=== PATIENT | male | born 1955 | race Caucasian/White ===

== ENCOUNTER 2024-03-08 10:33 | Outpatient (OUT) | payer MEDICARE, OTHER, SELFPAY ==
--- NOTE | 2024-03-08 10:48 | ECG_ITS ---
The [facility] Test Date: 2024-03-08 Pat Name: CHARLES JRUADO Department: Room: - Gender: Male [employer]: : 1955 Requested By: MARTINA KIRKLAND Order Number: [id number] Reading MD: WILLIE ESTRADA Measurements Intervals [place] Rate: 56 P: 57 TX: 191 QRS: -50 QRSD: 93 T: 30 QT: 405 QTc: 392 Interpretive Statements SINUS BRADYCARDIA WITH MARKED SINUS ARRHYTHMIA LEFT ANTERIOR FASCICULAR BLOCK [QRS AXIS <= -45, QR IN I, RS IN II] Electronically Signed On 03-09-2024 14:21:05 EDT by WILLIE ESTRADA
--- NOTE | 2024-03-08 10:48 | XR_ITS ---
The [address] [address] Patient Name: CHARLES JURADO MRN: [id number] date: 1955 Sex: M Assigned Patient Location: [facility] Current Patient Location: [facility] Accession/Order Number: [id number] Exam Date: 03/08/2024 11:39 Report Date: 03/08/2024 12:11 At the request of: MARTINA KIRKLAND Procedure: XR chest 2V PROCEDURE: XR chest 2V DATE: 03/08/2024 10:39 AM CDT COMPARISONS: 12/09/2022 CLINICAL INDICATION: 68 years Male Preop exam FINDINGS: The heart is mildly prominent and stable. There is slight perihilar and infrahilar increased interstitial markings, stable from previous exam. This likely represents a small amount of atelectasis and fibrosis. The lungs are otherwise clear. There is no evidence of pleural effusion or pneumothorax. XR/XR chest 2V IMPRESSION: Stable chest. Electronically authenticated by: MIRA PRIDE Date: 03/08/2024 12:11
[2024-03-08 11:49] LABS: Basophils Percent Auto 0.3 % (0.2-2.0); Eosinophils Absolute Auto 0.1 10^3/uL (0.0-0.7); Eosinophils Percent Auto 0.8 % (0.9-7.0); Hematocrit 43.3 % (42.0-54.0); Immature Granulocytes Abs Auto 0.03 10^3/uL (0.00-0.03); Immature Granulocytes Pct Auto 0.3 % (0.0-0.5); Lymphocytes Absolute Auto 3.1 10^3/uL (1.2-3.8); Lymphocytes Percent Auto 28.9 % (20.5-60.0); Mean Corpuscular HGB Conc 32.3 g/dL (29.9-35.2); Mean Corpuscular Hemoglobin 29.5 pg (25.9-34.0); Mean Corpuscular Volume 91.2 fL (80.0-94.0); Mean Platelet Volume 9.1 fL (9.5-13.5); Monocytes Absolute Auto 0.7 10^3/uL (0.3-0.8); Monocytes Percent Auto 6.7 % (1.7-12.0); Neutrophils Absolute Auto 6.8 10^3/uL (1.4-6.5); Platelet Count 200 10^3/uL (150-450); Red Blood Count 4.75 10^6/uL (4.70-6.10); Red Cell Distribution Width 14.2 % (11.0-15.0); White Blood Count 10.8 10^3/uL (4.0-11.0)
[2024-03-08 12:12] LABS: Anion Gap 9.3; BUN Creatinine Ratio 15.8; Calcium 9.4 mg/dL (8.5-10.1); Carbon Dioxide 31.7 mmol/L (21.0-32.0); Chloride 101 mmol/L (98-107); Estimated GFR (African America >60 (>=60); Estimated GFR (Non-African Ame >60 (>=60); Glucose 154 mg/dL (74-106); Sodium 138 mmol/L (136-145)
[2024-03-08 12:40] LABS: INR 1.03; Partial Thromboplastin Time 26.9 sec (22.3-36.2); Prothrombin Time 10.9 sec (9.0-11.6)
== END 2024-03-08 10:34 | disposition home or self-care (01) ==
LOC: PST 10:39
PROVIDERS: PCP Family Medicine; Visit Provider Otolaryngology
DX: Z01.810 Encounter for preprocedural cardiovascular examination (principal); Z01.812 Encounter for preprocedural laboratory examination; H69.93 Unspecified Eustachian tube disorder, bilateral
CPT/HCPCS: 71046; 80048; 85025; 85610; 85730; 93005

== ENCOUNTER 2024-03-21 09:11 | Day surgery (SDC) | payer MEDICARE, OTHER, SELFPAY ==
[2024-03-08 11:39] VITALS: BP 118/72; PULSE 56; TEMP 36.3; O2SAT 100; BMI 35.2
[2024-03-21] VITALS (10 sets, daily range): BP systolic 97–128; BP diastolic 59–77; PULSE 54–63; TEMP 36.1–36.2; O2SAT 92–97; BMI 34.8
--- NOTE | 2024-03-21 | OP_ITS ---
OPERATION DATE: 03/21/2024 SURGEON: Monica Murry M.D. PREOPERATIVE DIAGNOSIS: Right eustachian tube dysfunction. POSTOPERATIVE DIAGNOSIS: Right eustachian tube dysfunction. PROCEDURE: Right myringotomy and tube with microdissection, placement of a T- tube. ANESTHESIA: General endotracheal. COMPLICATIONS: None. FINDINGS: Dry right middle ear. INDICATIONS: This 68-year-old man presented with a chronic right negative tympanogram. PROCEDURE: Patient identified in the holding area and taken back to the OR where he was placed in the supine position. After induction of general anesthesia, the right ear was approached with the otomicroscope. An anterior radial myringotomy was performed and a modified Hermes?s T-tube was folded, inserted through the myringotomy and opened in the middle ear using microdissection. The patient was then awakened and taken to the recovery room in good condition. ZABRINA
[2024-03-21] MEDS: LACTATED RINGER'S SOLUTION 1,000 ML 50 ML IV (09:38)
--- NOTE | 2024-03-21 12:32 | PC.NURSE ---
1210: pt removed from oxygen,sats remain at 93%.
== END 2024-03-21 12:35 | disposition home or self-care (01) ==
PROVIDERS: PCP Family Medicine; Visit Provider Otolaryngology
PROC: (CPT 69436; principal; 2024-03-21 10:35)
DX: H69.81 Other specified disorders of Eustachian tube, right ear (principal); I10 Essential (primary) hypertension; Z79.01 Long term (current) use of anticoagulants; J44.9 Chronic obstructive pulmonary disease, unspecified; I25.10 Atherosclerotic heart disease of native coronary artery without angina pectoris; H90.6 Mixed conductive and sensorineural hearing loss, bilateral; Z96.641 Presence of right artificial hip joint; E78.5 Hyperlipidemia, unspecified; M47.816 Spondylosis without myelopathy or radiculopathy, lumbar region; G47.33 Obstructive sleep apnea (adult) (pediatric); Z86.16 Personal history of COVID-19; Z90.49 Acquired absence of other specified parts of digestive tract; Z79.82 Long term (current) use of aspirin; Z79.899 Other long term (current) drug therapy
CPT/HCPCS: 69436; 36415; J1094; J2704